=== PATIENT | male | born 1980 | race Two or more races ===

== ENCOUNTER 2017-10-16 10:25 | Inpatient (IN) | payer OTHER ==
[2017-10-12 19:23] VITALS: BMI 20.9
[2017-10-16] MEDS ORDERED: GENTAMICIN SO4 80 MG/2 ML VIAL ONE ×3 (10:44→12:23)
[2017-10-16] MEDS ORDERED: THROMBIN (BOVINE) 5,000 UNIT VIAL TP ONE (10:45)
[2017-10-16] MEDS ORDERED: LIDOCAINE 1%/EPI 1:100000 (20 ML MULTI DOSE VIAL) ONE (10:45)
[2017-10-16 11:02] LABS: URINE APPEARANCE CLEAR; URINE BILIRUBIN NEGATIVE (NEGATIVE); URINE BLOOD NEGATIVE (NEGATIVE); URINE COLOR YELLOW; URINE GLUCOSE (UA) NEGATIVE (NEGATIVE); URINE KETONE NEGATIVE (NEGATIVE); URINE LEUK ESTERASE NEGATIVE (NEGATIVE); URINE NITRITE NEGATIVE (NEGATIVE); URINE PROTEIN NEGATIVE (NEGATIVE); URINE UROBILINOGEN NEGATIVE mg/dL (0.2-1.0)
[2017-10-16 11:11] LABS: INR 1.08 (0.82-1.09); PROTHROMBIN TIME (PATIENT) 12.2 SEC (9.98-11.88)
[2017-10-16 11:13] LABS: ACTIVATED PTT 30.1 SECONDS (26.9-34.4)
[2017-10-16] MEDS ORDERED: fentaNYL CITRATE 250 MCG/5 ML VIAL ONE (11:36)
[2017-10-16] MEDS ORDERED: MIDAZOLAM HCL 2 MG/2 ML SINGLE DOSE VIAL ONE ×3 (11:37)
[2017-10-16] MEDS ORDERED: PROPOFOL 20 ML ONE ×2 (11:37→14:20)
[2017-10-16] MEDS ORDERED: ROCURONIUM BROMIDE 50 MG/5 ML VIAL ONE ×2 (11:37→12:44)
[2017-10-16] MEDS ORDERED: ceFAZolin SODIUM 1 GM VIAL IVPB ONE (12:37)
[2017-10-16] MEDS ORDERED: ONDANSETRON 4 MG/2 ML VIAL ONE ×2 (12:58→14:55)
[2017-10-16] MEDS ORDERED: DEXAMETHASONE SOD PHOSPHATE 4 MG/1 ML VIAL ONE (12:58)
[2017-10-16] MEDS ORDERED: NEOSTIGMINE METHYLSULFATE 0.5 MG/ML - 10 ML MDV ONE (14:53)
[2017-10-16] MEDS ORDERED: GLYCOPYRROLATE 0.2 MG/1 ML VIAL ONE (14:54)
[2017-10-16] MEDS ORDERED: BUPIVACAINE HCL/PF 0.5% (5MG/ML) 10 ML VIAL IJ ONE (15:00)
--- NOTE | 2017-10-16 15:18 | OP ---
Operative Note - Note: Operative Date: 10/16/17 Pre-Operative Diagnosis: Lumbar stenosis, L5/S1 disc herniation, radiculopathy Operation: L5-S1 Laminectomies with interbody cage, arthrodesis, L5-S1 posterior spinal fusion w/ pedicle screws and iliac crest bone graft Post-Operative Diagnosis: Same as Pre-op Surgeon: Mazin Russell [employer] Operator: Nikolay Simmons Anesthesiologist/DAY CARE PROVIDER: So Gallegos Anesthesia: General Estimated Blood Loss (mls): 150 Fluid Volume Replaced (mls): 1,300
[2017-10-16] MEDS ORDERED: PROMETHAZINE HCL 25 MG/1 ML VIAL IVPB PRN (15:20)
[2017-10-16] MEDS ORDERED: ONDANSETRON 4 MG/2 ML VIAL IVPUSH PRN ×2 (15:20→15:23)
[2017-10-16] MEDS ORDERED: HYDROmorphone HCL CARPU-JECT 1 MG/1 ML DISP.SYRIN IVPUSH PRN (15:20)
--- NOTE | 2017-10-16 15:21 | SURG ---
Surgery Call Center Operations Manager Note Call Center Operations Manager: Nikolay Simmons PA-C Date of Service: 10/16/17 Diagnosis: Lumabr stenosis, L5/S1 disc herniation, radiculopathy Procedure: L5-S1 Laminectomies with interbody cage, arthrodesis, L5-S1 posterior spinal fusion w/ pedicle screws and iliac crest bone graft I was present for the entirety of the operative procedure. For further detail, please refer to operative report. Visit type - Case Type Case Type: Scheduled Admission - New patient This patient is new to me today: Yes Date on this admission: 10/16/17
[2017-10-16] MEDS ORDERED: oxyCODONE HCL 5 MG TABLET PO PRN (15:23)
[2017-10-16] MEDS ORDERED: HYDROmorphone *PCA* 6MG/30ML DISP.SYRIN PCA ONE (15:24)
[2017-10-16] MEDS ORDERED: LACTATED RINGERS SOLUTION 1,000 ML IV SCH (15:30)
[2017-10-16] MEDS ORDERED: PROMETHAZINE HCL 25 MG/1 ML VIAL ONE (16:25)
[2017-10-16] MEDS: LACTATED RINGERS SOLUTION 1,000 ML IV SCH (17:12)
[2017-10-16] MEDS: HYDROmorphone *PCA* 6MG/30ML DISP.SYRIN PCA SCH ×3 (17:51→23:52)
[2017-10-16] MEDS: ACETAMINOPHEN 325 MG TABLET (FP) PO SCH ×2 (17:51→22:00)
[2017-10-16] MEDS: CEFAZOLIN 1 GM PUSH 1 GM/10 ML DISP.SYRIN IVPUSH SCH (17:58)
[2017-10-16] MEDS ORDERED: QUEtiapine FUMARATE 25 MG TABLET (FP) ONE (20:59)
[2017-10-16] MEDS ORDERED: PREGABALIN 100 MG CAPSULE PO SCH (22:00)
[2017-10-16] MEDS ORDERED: QUEtiapine FUMARATE 50 MG TABLET PO SCH (22:00)
[2017-10-16] MEDS: PREGABALIN 50 MG CAPSULE PO SCH (22:01)
[2017-10-16] MEDS: diazePAM 2 MG TABLET PO SCH (22:02)
[2017-10-17] MEDS: CEFAZOLIN 1 GM PUSH 1 GM/10 ML DISP.SYRIN IVPUSH SCH ×2 (01:41→09:26)
[2017-10-17] MEDS: ACETAMINOPHEN 325 MG TABLET (FP) PO SCH ×4 (03:50→21:30)
[2017-10-17 07:41] LABS: HEMATOCRIT 36.4 % (35.4-49); HEMOGLOBIN 12.2 GM/dL (11.7-16.9); MCH 31.4 pg (25.7-33.7); MCHC 33.4 g/dl (32.0-35.9); MEAN CELL VOLUME 93.8 fl (80-96); MEAN PLT VOLUME 7.1 fl (7.5-11.1); PLATELET COUNT 197 K/MM3 (134-434); RBC 3.88 M/mm3 (4.00-5.60); WHITE BLOOD COUNT 13.6 K/mm3 (4.0-10.0)
[2017-10-17 08:22] LABS: ANION GAP 9 (8-16); BLOOD UREA NITROGEN 15 mg/dL (7-18); CALCIUM 8.6 mg/dL (8.5-10.1); CHLORIDE 103 mmol/L (98-107); CO2 28 mmol/L (21-32); GLUCOSE,RANDOM 104 mg/dL (74-106); POTASSIUM 4.2 mmol/L (3.5-5.1); SODIUM 140 mmol/L (136-145)
[2017-10-17] MEDS ORDERED: PT OWN MED DRAWER 7, Y5N ONE (08:56)
--- NOTE | 2017-10-17 08:57 | PN ---
Progress Note (short form) - Note Progress Note: Patient doing well after Lumbar fusion. CT shows solid construct with slight medial breach of Right L5 screw. Patient felt very good immediately after surgery and has expected back pain as local anesthetic wears off. PLAN -d/c SINGH -OOB with PT -TLSO brace per protocol -no NSAID -Increase DRY BOSS (patient with long history of conservative management using narcotics)
[2017-10-17] MEDS: EMTRICITAB/RILPIVIRINE/TENOFOV 1 EACH TABLET PO SCH (08:58)
[2017-10-17] MEDS: LACTATED RINGERS SOLUTION 1,000 ML IV SCH ×2 (09:24→16:01)
[2017-10-17] MEDS: diazePAM 2 MG TABLET PO SCH ×2 (09:26→21:32)
[2017-10-17] MEDS: PREGABALIN 50 MG CAPSULE PO SCH ×2 (09:26→21:32)
[2017-10-17] MEDS: SERTRALINE HCL 50 MG TABLET (FP) PO SCH (09:26)
--- NOTE | 2017-10-17 10:00 | PN ---
Progress Note, Physician Chief Complaint: s/p lumbar fusion under general anesthesia post opday one History of Present Illness: on drill sharpener operator for post op pain control - Current Medication List Current Medications: Active Medications Acetaminophen (Tylenol -) 650 mg PO Q6H [facility] Last Admin: 10/17/17 08:58 Dose: 650 mg Diazepam (Valium -) 2 mg PO BID [facility] Last Admin: 10/17/17 09:26 Dose: 2 mg Emtricitabine/Rilpivirine/Tenofovir (Complera -) 1 each PO DAILY@0800 [facility] Last Admin: 10/17/17 08:58 Dose: 1 each Hydromorphone HCl (Dilaudid Formulator Compounder -) 6 mg TELEPHONE TECHNICIAN TELEPHONE TECHNICIAN [facility] PRN Reason: Protocol Stop: 10/19/17 16:30 Lactated Ringer's (Lactated Ringers Solution) 1,000 mls @ 125 mls/hr IV ASDIR [facility] Last Admin: 10/17/17 09:24 Dose: 125 mls/hr Cefazolin Sodium (Ancef -) 1 gm in 10 mls @ 100 mls/hr IVPUSH Q8H-IV [facility] Stop: 10/17/17 17:59 Last Admin: 10/17/17 09:26 Dose: 100 mls/hr Ondansetron HCl (Zofran Injection) 4 mg IVPUSH Q6H PRN PRN Reason: NAUSEA AND/OR VOMITING Oxycodone HCl (Roxicodone -) 5 mg PO Q4H PRN PRN Reason: PAIN LEVEL 1-5 Oxycodone HCl (Roxicodone -) 10 mg PO Q4H PRN PRN Reason: PAIN LEVEL 6-10 Pregabalin (Lyrica -) 100 mg PO BID [facility] Last Admin: 10/17/17 09:26 Dose: 100 mg Promethazine HCl (Phenergan Injection -) 12.5 mg IVPB Q6H PRN PRN Reason: NAUSEA-FOR RESCUE AFTER 15 MIN Quetiapine Fumarate (Seroquel -) 200 mg PO [facility] Sertraline HCl (Zoloft -) 100 mg PO DAILY [facility] Last Admin: 10/17/17 09:26 Dose: 100 mg - Objective Vital Signs: Vital Signs Temperature 98.2 F 10/17/17 09:14 Pulse Rate 82 10/17/17 09:14 Respiratory Rate 20 10/17/17 09:14 Blood Pressure 98/66 10/17/17 09:14 O2 Sat by Pulse Oximetry (%) 100 10/16/17 21:00 Constitutional: Yes: Well Nourished Cardiovascular: Yes: WNL Respiratory: Yes: WNL Gastrointestinal: Yes: WNL Labs: CBC, BMP 10/17/17 06:00 10/17/17 06:00 INR, PTT INR 1.08 (0.82-1.09) 10/16/17 10:45 Assessment/Plan No adverse effect of anesthetic. No nausea or vomiting. Pain inadequately controlled. Suggested switching to oral but patient insisted on remaining on drill sharpener operator for one more day. will increase drill sharpener operator dose. will follow up tomoroow
[2017-10-17] MEDS: HYDROmorphone *PCA* 6MG/30ML DISP.SYRIN PCA SCH ×3 (11:07→18:32)
[2017-10-17] MEDS: HEPARIN NA (PORCINE) 5,000 UNITS/ML 1ML VIAL SQ SCH ×2 (14:22→21:28)
--- NOTE | 2017-10-17 19:17 | PN ---
Progress Note (short form) - Note Progress Note: 37 y/o male with aprox 6 month hx of back pain progressively getting worse. evaluated and underwent surgical intervention 10/16/17 POD#1 L5-S1 Laminectomies with interbody cage, arthrodesis, L5-S1 posterior spinal fusion w/ pedicle screws and iliac crest bone graft patient seen and examined in room c/o pain to lower back and continued paresthesia to both LE Vital Signs Period Temp Pulse Resp BP Sys/Bhatti Pulse Ox Last 24 Hr 98 F-98.8 F 74-88 20-20 90-115/44-66 99-100 neck supple heart S1/S2 reg lung clear bilat abd soft non tender back surgical site with dressing / clean and dry ext no edema / +2 pulses CBC, BMP 10/17/17 06:00 10/17/17 06:00 POD #1 L5-S1 Laminectomies with interbody cage, arthrodesis, L5-S1 posterior spinal fusion w/ pedicle screws and iliac crest bone graft
[2017-10-17] MEDS: QUEtiapine FUMARATE 100 MG TABLET (FP) PO SCH (21:32)
[2017-10-18] MEDS: ACETAMINOPHEN 325 MG TABLET (FP) PO SCH ×6 (03:48→22:02)
[2017-10-18] MEDS: HEPARIN NA (PORCINE) 5,000 UNITS/ML 1ML VIAL SQ SCH ×3 (06:13→21:15)
[2017-10-18] MEDS ORDERED: PT OWN MED DRAWER 7, Y5N ONE (09:12)
[2017-10-18] MEDS ORDERED: HYDROmorphone *PCA* 6MG/30ML DISP.SYRIN PCA SCH (09:45)
[2017-10-18] MEDS: PREGABALIN 50 MG CAPSULE PO SCH ×2 (09:45→21:15)
[2017-10-18] MEDS: diazePAM 2 MG TABLET PO SCH ×2 (09:45→21:15)
[2017-10-18] MEDS: EMTRICITAB/RILPIVIRINE/TENOFOV 1 EACH TABLET PO SCH (09:45)
[2017-10-18] MEDS: SERTRALINE HCL 50 MG TABLET (FP) PO SCH (09:45)
--- NOTE | 2017-10-18 09:53 | PN ---
Progress Note, Physician Chief Complaint: Pt. still having severe pain after ADMINISTRATIVE ASSISTANT FRONT DESK dose increased yesterday. No other complaints. - Current Medication List Current Medications: Active Medications Acetaminophen (Tylenol -) 650 mg PO Q6H [facility] Last Admin: 10/18/17 03:48 Dose: Not Given Diazepam (Valium -) 2 mg PO BID [facility] Last Admin: 10/17/17 21:32 Dose: 2 mg Emtricitabine/Rilpivirine/Tenofovir (Complera -) 1 each PO DAILY@0800 [facility] Last Admin: 10/17/17 08:58 Dose: 1 each Heparin Sodium (Porcine) (Heparin -) 5,000 unit SQ TID [facility] Last Admin: 10/18/17 06:13 Dose: 5,000 unit Hydromorphone HCl (Dilaudid Fruit Dumper -) 6 mg ADMINISTRATIVE ASSISTANT FRONT DESK ADMINISTRATIVE ASSISTANT FRONT DESK [facility] PRN Reason: Protocol Stop: 10/19/17 16:30 Last Admin: 10/17/17 18:32 Dose: 6 mg Lactated Ringer's (Lactated Ringers Solution) 1,000 mls @ 125 mls/hr IV ASDIR [facility] Last Admin: 10/17/17 16:01 Dose: Not Given Ondansetron HCl (Zofran Injection) 4 mg IVPUSH Q6H PRN PRN Reason: NAUSEA AND/OR VOMITING Oxycodone HCl (Roxicodone -) 5 mg PO Q4H PRN PRN Reason: PAIN LEVEL 1-5 Oxycodone HCl (Roxicodone -) 10 mg PO Q4H PRN PRN Reason: PAIN LEVEL 6-10 Pregabalin (Lyrica -) 100 mg PO BID [facility] Last Admin: 10/17/17 21:32 Dose: 100 mg Promethazine HCl (Phenergan Injection -) 12.5 mg IVPB Q6H PRN PRN Reason: NAUSEA-FOR RESCUE AFTER 15 MIN Quetiapine Fumarate (Seroquel -) 200 mg PO HS [facility] Last Admin: 10/17/17 21:32 Dose: 200 mg Sertraline HCl (Zoloft -) 100 mg PO DAILY [facility] Last Admin: 10/17/17 09:26 Dose: 100 mg - Objective Vital Signs: Vital Signs Temperature 98.6 F 10/18/17 06:00 Pulse Rate 86 10/18/17 06:00 Respiratory Rate 18 10/18/17 06:00 Blood Pressure 103/63 10/18/17 06:00 O2 Sat by Pulse Oximetry (%) 99 10/17/17 21:00 Constitutional: Yes: Well Nourished, No Distress, Calm Musculoskeletal: Yes: WNL Neurological: Yes: WNL, Alert, Oriented ...Motor Strength: WNL Labs: CBC, BMP 10/17/17 06:00 10/17/17 06:00 INR, PTT INR 1.08 (0.82-1.09) 10/16/17 10:45 Assessment/Plan POD#2 s/p lumbar fusion under GA with ADMINISTRATIVE ASSISTANT FRONT DESK for pain control. Increased ADMINISTRATIVE ASSISTANT FRONT DESK to 0.6mg q6. Will see tomorrow
--- NOTE | 2017-10-18 13:21 | PN ---
Progress Note (short form) - Note Progress Note: Pt found lying in bed. Rates lower back pain as 9 on pain scale. Vital Signs Period Temp Pulse Resp BP Sys/Bhatti Pulse Ox Last 24 Hr 98.0 F-98.6 F 74-86 18-20 96-115/52-65 99 CBC, BMP 10/17/17 06:00 10/17/17 06:00 HEENT- Normocephalic Neck- supple Lungs- CTAB Heart- S1/S2 Abd- Soft, NT, Pos BS x 4 Skin- Lumbar incision site dsg intact. SINGH drain in place. Ext- Neg LE edema Active Medications Acetaminophen (Tylenol -) 650 mg PO Q6H [facility] Last Admin: 10/18/17 09:48 Dose: Not Given Diazepam (Valium -) 2 mg PO BID [facility] Last Admin: 10/18/17 09:45 Dose: 2 mg Emtricitabine/Rilpivirine/Tenofovir (Complera -) 1 each PO DAILY@0800 [facility] Last Admin: 10/18/17 09:45 Dose: 1 each Heparin Sodium (Porcine) (Heparin -) 5,000 unit SQ TID [facility] Last Admin: 10/18/17 06:13 Dose: 5,000 unit Hydromorphone HCl (Dilaudid Airplane Gas Tank Liner Assembler -) 6 mg CALL CENTER SUPPORT REPRESENTATIVE CALL CENTER SUPPORT REPRESENTATIVE [facility] PRN Reason: Protocol Stop: 10/19/17 16:30 Last Admin: 10/18/17 10:46 Dose: 6 mg Lactated Ringer's (Lactated Ringers Solution) 1,000 mls @ 125 mls/hr IV ASDIR [facility] Last Admin: 10/17/17 16:01 Dose: Not Given Ondansetron HCl (Zofran Injection) 4 mg IVPUSH Q6H PRN PRN Reason: NAUSEA AND/OR VOMITING Oxycodone HCl (Roxicodone -) 5 mg PO Q4H PRN PRN Reason: PAIN LEVEL 1-5 Oxycodone HCl (Roxicodone -) 10 mg PO Q4H PRN PRN Reason: PAIN LEVEL 6-10 Pregabalin (Lyrica -) 100 mg PO BID [facility] Last Admin: 10/18/17 09:45 Dose: 100 mg Promethazine HCl (Phenergan Injection -) 12.5 mg IVPB Q6H PRN PRN Reason: NAUSEA-FOR RESCUE AFTER 15 MIN Quetiapine Fumarate (Seroquel -) 200 mg PO HS [facility] Last Admin: 10/17/17 21:32 Dose: 200 mg Sertraline HCl (Zoloft -) 100 mg PO DAILY [facility] Last Admin: 10/18/17 09:45 Dose: 100 mg POD #1 L5-S1 Laminectomies with interbody cage, arthrodesis, L5-S1 posterior spinal fusion w/ pedicle screws and iliac crest bone graft
[2017-10-18] MEDS: LACTATED RINGERS SOLUTION 1,000 ML IV SCH (16:30)
[2017-10-18] MEDS: oxyCODONE HCL 5 MG TABLET PO PRN ×2 (16:51→21:17)
[2017-10-18] MEDS: QUEtiapine FUMARATE 100 MG TABLET (FP) PO SCH (21:15)
[2017-10-19] MEDS: oxyCODONE HCL 5 MG TABLET PO PRN ×4 (01:42→17:43)
[2017-10-19] MEDS: ACETAMINOPHEN 325 MG TABLET (FP) PO SCH (05:22)
[2017-10-19] MEDS: HEPARIN NA (PORCINE) 5,000 UNITS/ML 1ML VIAL SQ SCH ×3 (05:30→21:55)
[2017-10-19 08:04] LABS: BASO % 0.2 % (0-2.0); EOS % 1.2 % (0-4.5); HEMATOCRIT 35.8 % (35.4-49); HEMOGLOBIN 12.2 GM/dL (11.7-16.9); LYMPH % 29.3 % (8-40); MCH 32.1 pg (25.7-33.7); MEAN CELL VOLUME 94.3 fl (80-96); MEAN PLT VOLUME 7.9 fl (7.5-11.1); MONO % 12.5 % (3.8-10.2); NEUT % 56.8 % (42.8-82.8); PLATELET COUNT 182 K/MM3 (134-434); RDW 13.2 % (11.9-15.9); WHITE BLOOD COUNT 8.8 K/mm3 (4.0-10.0)
[2017-10-19] MEDS ORDERED: oxyCODONE HCL 5 MG TABLET PO PRN ×2 (08:18→08:30)
[2017-10-19] MEDS ORDERED: ACETAMINOPHEN 325 MG TABLET (FP) PO PRN (08:24)
[2017-10-19] MEDS ORDERED: KETOROLAC TROMETHAMINE 30 MG/1 ML VIAL IVPUSH ONE (08:25)
[2017-10-19] MEDS ORDERED: PT OWN MED DRAWER 7, Y5N ONE (08:42)
[2017-10-19] MEDS: EMTRICITAB/RILPIVIRINE/TENOFOV 1 EACH TABLET PO SCH (08:46)
[2017-10-19] MEDS: oxyCODONE HCL 20 MG SUSTAINED ACTING TABLET PO SCH ×3 (08:46→21:56)
--- NOTE | 2017-10-19 08:49 | PN ---
Progress Note (short form) - Note Progress Note: 37 y/o male with aprox 6 month hx of back pain progressively getting worse. evaluated and underwent surgical intervention 10/16/17 POD#3 L5-S1 Laminectomies with interbody cage, arthrodesis, L5-S1 posterior spinal fusion w/ pedicle screws and iliac crest bone graft patient seen and examined in room off ELECTRICAL PROSPECTOR but still with significant pain ( patient has been followed by Dr Velasco as out patient for Pain Management ) pain meds increased and will reassess for possible d/c today Vital Signs Period Temp Pulse Resp BP Sys/Bhatti Pulse Ox Last 24 Hr 98 F-98.8 F 74-88 20-20 90-115/44-66 99-100 neck supple heart S1/S2 reg lung clear bilat abd soft non tender back surgical site clean / drain in place - being removed at time of exam ext no edema / +2 pulses / no calf tenderness CBC, BMP 10/19/17 06:30 POD#3 L5-S1 Laminectomies with interbody cage, arthrodesis, L5-S1 posterior spinal fusion w/ pedicle screws and iliac crest bone graft ---pain management re - assess pain control prior to d/c out patient follow up with Dr Velasco ---Surgical follow up per NS
[2017-10-19 09:04] LABS: ANION GAP 7 (8-16); BLOOD UREA NITROGEN 9 mg/dL (7-18); CALCIUM 8.4 mg/dL (8.5-10.1); CHLORIDE 100 mmol/L (98-107); CO2 32 mmol/L (21-32); CREATININE 0.8 mg/dL (0.7-1.3); GLUCOSE,RANDOM 90 mg/dL (74-106); POTASSIUM 3.8 mmol/L (3.5-5.1); SODIUM 139 mmol/L (136-145)
[2017-10-19] MEDS: SERTRALINE HCL 50 MG TABLET (FP) PO SCH (09:09)
[2017-10-19] MEDS: PREGABALIN 50 MG CAPSULE PO SCH ×2 (09:10→21:55)
--- NOTE | 2017-10-19 10:27 | PN ---
Progress Note (short form) - Note Progress Note: Surgery POD #3 L5-S1 Laminectomies with interbody cage, arthrodesis, L5-S1 posterior spinal fusion Patient seen and examined at bedside c/o significant back and right leg pain. He was being followed by Dr Velasco for pain management preoperatively and has had difficulty with post op pain management since BROADCAST DIRECTOR OPERATIONS was discharged yesterday. He is still having lots of Right LE radiculopathy and intermittent numbness in the foot and toes. He is tolerating a regular diet, voiding and passing gas but has not moved his bowels yet. He denies any CP, SOB, N/V fever or chills. Vital Signs Temp 98.3 F 10/19/17 05:00 Pulse 79 10/19/17 05:00 Resp 18 10/19/17 05:00 BP 104/52 10/19/17 05:00 Pulse Ox 99 10/18/17 21:00 Intake & Output 18 10/18/17 10/19/17 11:59 23:59 11:59 Intake Total 250 1350 1350 Output Total 1260 1430 1820 Balance -1010 -80 -470 Intake: IV 500 1000 Lactated Ringers Solution 500 1000 1,000 ml @ 125 mls/hr IV ASDIR [facility] Rx#: [id number] Oral 250 850 350 Output: Drainage 60 80 20 Back 60 80 20 Urine 1200 1350 1800 Void 1200 1350 1800 Other: Voiding Method Urinal Urinal Urinal Bowel Movement No No CBC, BMP 0318 06:30 10/19/17 06:30 PE: A&Ox3, mild distress 2/2 pain unlabored resp on RA Lumbar spine incision C/D/I with day insitu and dermanbond. surrounding tissue without erythema, edema, or evidence of collection or fluctuance. J/P drain right paraveterbral removed with tip fully intact and @10cc of SS d/c. Steri strips and pressure dressing applied to drain site. B/L LE compartments soft, supple and non-tender. 5/5 strength on dorsi/plantar flexion and +2 pedal pulses. Problem List - Problems (1) Lumbar degenerative disc disease Assessment/Plan: POD# 3 Lumbar lamiectomy and fusion in the setting of chronic pain and previous outpatient pain management with Dr. Velasco Plan: 1) New pain regime as discussed with Dr Russell and Dr Mak implemented. Patient will follow up with Dr Velasco immediately upon d/c. 2) OOB with PT and TLSO brace, WBAT 3) Continue DVT prophylaxis 4) d/c planning for home today vs tomorrow. Evaluation and plan discussed with Dr Russell Code(s): M51.36 - OTHER INTERVERTEBRAL DISC DEGENERATION, LUMBAR REGION
[2017-10-19] MEDS: ACETAMINOPHEN 325 MG TABLET (FP) PO PRN ×2 (10:40→17:43)
[2017-10-19] MEDS: POLYETHYLENE GLYCOL 3350 119 GM BTL PO SCH ×2 (10:56→21:56)
[2017-10-19] MEDS: QUEtiapine FUMARATE 100 MG TABLET (FP) PO SCH (21:55)
[2017-10-20] MEDS: HEPARIN NA (PORCINE) 5,000 UNITS/ML 1ML VIAL SQ SCH ×3 (05:31→21:25)
[2017-10-20] MEDS ORDERED: PT OWN MED DRAWER 7, Y5N ONE ×3 (08:24→14:49)
[2017-10-20] MEDS: EMTRICITAB/RILPIVIRINE/TENOFOV 1 EACH TABLET PO SCH (08:48)
[2017-10-20] MEDS: ACETAMINOPHEN 325 MG TABLET (FP) PO PRN ×3 (08:48→19:38)
[2017-10-20] MEDS: oxyCODONE HCL 5 MG TABLET PO PRN ×2 (08:48→14:54)
[2017-10-20] MEDS: oxyCODONE HCL 20 MG SUSTAINED ACTING TABLET PO SCH ×2 (10:48→21:21)
[2017-10-20] MEDS: SERTRALINE HCL 50 MG TABLET (FP) PO SCH (10:48)
[2017-10-20] MEDS: PREGABALIN 50 MG CAPSULE PO SCH ×2 (10:48→21:21)
[2017-10-20] MEDS: POLYETHYLENE GLYCOL 3350 119 GM BTL PO SCH ×2 (10:48→21:25)
--- NOTE | 2017-10-20 12:23 | PN ---
Progress Note (short form) - Note Progress Note: 37 y/o male with aprox 6 month hx of back pain progressively getting worse. evaluated and underwent surgical intervention 10/16/17 POD#4 L5-S1 Laminectomies with interbody cage, arthrodesis, L5-S1 posterior spinal fusion w/ pedicle screws and iliac crest bone graft patient seen and examined in room pain meds have been adjusted --yet remains "in pain" and no BM since surgery per nursing staff has been ambulating the hallways wearing his brace he is reluctant to go home - due to poor pain management and "safety " ( has stairs and lives alone ) doubtful he would qualify for STR reviewed meds with patient Vital Signs Period Temp Pulse Resp BP Sys/Bhatti Pulse Ox Last 24 Hr 98 F-98.8 F 74-88 20-20 90-115/44-66 99-100 neck supple heart S1/S2 reg lung clear bilat abd soft non tender back surgical site clean / drain in place - being removed at time of exam ext no edema / +2 pulses / no calf tenderness CBC, BMP 10/19/17 06:30 POD#4 L5-S1 Laminectomies with interbody cage, arthrodesis, L5-S1 posterior spinal fusion w/ pedicle screws and iliac crest bone graft ---pain management re - assess pain control prior to d/c pain meds reviewed with patient encourage d/c home out patient follow up with Dr Velasco ---Surgical follow up per NS for d/c home in am
[2017-10-20] MEDS: DOCUSATE SODIUM 100 MG CAPSULE (FP) PO SCH ×2 (13:13→21:21)
--- NOTE | 2017-10-20 16:20 | PN ---
Progress Note (short form) - Note Progress Note: Patient is stable after Lumbar fusion. Pain controlled with oral medications although he feels that his pain is not eliminated. Dressing is clean, dry and intact. Patient ambulating with brace. Patient should be ready for discharge home in AM
[2017-10-20] MEDS: QUEtiapine FUMARATE 100 MG TABLET (FP) PO SCH (21:21)
[2017-10-21] MEDS: ACETAMINOPHEN 325 MG TABLET (FP) PO PRN ×2 (04:35→12:46)
[2017-10-21] MEDS: HEPARIN NA (PORCINE) 5,000 UNITS/ML 1ML VIAL SQ SCH ×3 (06:21→21:29)
[2017-10-21] MEDS ORDERED: PT OWN MED DRAWER 7, Y5N ONE ×3 (08:05→13:55)
[2017-10-21] MEDS: EMTRICITAB/RILPIVIRINE/TENOFOV 1 EACH TABLET PO SCH (08:49)
[2017-10-21] MEDS: oxyCODONE HCL 5 MG TABLET PO PRN (08:49)
[2017-10-21] MEDS: POLYETHYLENE GLYCOL 3350 119 GM BTL PO SCH ×2 (09:23→21:30)
[2017-10-21] MEDS: DOCUSATE SODIUM 100 MG CAPSULE (FP) PO SCH ×2 (09:23→21:42)
[2017-10-21] MEDS: SERTRALINE HCL 50 MG TABLET (FP) PO SCH (09:23)
[2017-10-21] MEDS: PREGABALIN 50 MG CAPSULE PO SCH ×2 (09:24→21:38)
[2017-10-21] MEDS: oxyCODONE HCL 20 MG SUSTAINED ACTING TABLET PO SCH ×2 (10:48→21:39)
--- NOTE | 2017-10-21 10:56 | PN ---
Progress Note (short form) - Note Progress Note: Patient doing well. We discussed discharge instructions and use of incentive spirometer. Patient should contact my office after discharge to schedule skin clip removal (likely on November 14). All questions answered.
[2017-10-21] MEDS ORDERED: MAGNESIUM CITRATE 300 ML BOTTLE PO ONE (14:30)
[2017-10-21] MEDS ORDERED: Methylnaltrexone Bromide 12 MG/0.6 ML KIT SQ ONE (15:00)
[2017-10-21] MEDS: QUEtiapine FUMARATE 100 MG TABLET (FP) PO SCH (21:37)
[2017-10-22] MEDS: HEPARIN NA (PORCINE) 5,000 UNITS/ML 1ML VIAL SQ SCH (05:47)
[2017-10-22 06:11] VITALS: TEMP 99
--- NOTE | 2017-10-22 06:21 | DS ---
Physical Examination Vital Signs: Vital Signs Temperature 99.0 F 10/22/17 06:11 Pulse Rate 80 10/22/17 06:11 Respiratory Rate 18 10/22/17 06:11 Blood Pressure 99/54 10/22/17 06:11 O2 Sat by Pulse Oximetry (%) 97 10/21/17 21:00 Findings/Remarks: 37 y/o male with aprox 6 month hx of back pain progressively getting worse. evaluated and underwent surgical intervention 10/16/17 s/p L5-S1 Laminectomies with interbody cage, arthrodesis, L5-S1 posterior spinal fusion w/ pedicle screws and iliac crest bone graft Patients stay complicated by fever POD #4 which is now resolved await CXR / cbc/ bmp this am for d/c home Constitutional: Yes: Well Nourished, No Distress, Calm Eyes: Yes: WNL, Conjunctiva Clear HENT: Yes: WNL, Atraumatic, Normocephalic Neck: Yes: WNL, Supple, Trachea Midline Cardiovascular: Yes: Regular Rate and Rhythm Respiratory: Yes: CTA Bilaterally Gastrointestinal: Yes: Normal Bowel Sounds, Soft Renal/: Yes: WNL Breast(s): Yes: WNL Musculoskeletal: Yes: WNL Extremities: No: Deformity, Delayed Capillary Refill Edema: No Peripheral Pulses WNL: Yes Integumentary: Yes: WNL Wound/Incision: Yes: Clean/Dry Neurological: Yes: Alert, Oriented Psychiatric: Yes: Alert, Oriented Labs: CBC, BMP 10/19/17 06:30 10/19/17 06:30 Discharge Summary Reason For Visit: DEGENERATIVE DISC DISEASE AND SPONDYLOLISTHESIS Current Active Problems Lumbar degenerative disc disease (Acute) HIV - stable - outpte management Chronic pain syndrome will follow up with Dr Velasco ( pain Med) Condition: Good - Instructions Diet, Activity, Other Instructions: Dr. Russell's Discharge Instructions Post Operative Instructions Physical activity Resume your normal everyday activity as tolerated no heavy lifting or exercise until seen by your surgeon. You may walk unlimited amounts of and climb stairs. You may resume driving the car when you feel safe and comfortable behind the wheel and you are no longer wearing your brace. Do not operate a vehicle while taking narcotic medication. Wound care If you have a bandage, leave it on, and keep dry for 48 - 72 hours. After that time discard the outer bandage. If there are tapes on the skin under the outer bandage, leave them in place. They will peel off in the next 7 to 10 days. Do Not peel them off. You may shower 2 days after surgery however, do not submerge the incision.The day will be removed in the office in 10-14 days. Diet There are no dietary restrictions. Eat healthy, high-fiber foods. Drink 6 to 8 glasses of liquid each day. This will assist in keeping your bowels are regular. Pain management You may take Tylenol or acetaminophen. Any pain prescription medication ordered should be taken as prescribed for moderate to severe pain. Call Dr. Russell for any of the following: Severe pain not relieved by medication Fever of 101 or higher Excessive bleeding or drainage on dressing Inability to urinate Any chest pain or shortness of breath seek emergency care. Call the office to confirm a post operative appointment 7-10 days post op. Referrals: Zay Velasco MD [Staff Physician] - Disposition: HOME - Home Medications Comprehensive Discharge Medication List: Ambulatory Orders Quetiapine Fumarate [Seroquel -] 200 mg PO HS 09/03/15 Sertraline HCl [Zoloft -] 100 mg PO DAILY 09/03/15 Emtricita/Rilpivirine/Tenof Df [Complera Tablet] 1 each PO DAILY 10/12/17 Multivitamin/Iron/Folic Acid [Centrum Adults Tablet] 1 each PO DAILY 10/12/17 Pregabalin [Lyrica] 100 mg PO BID 10/12/17 oxycontin 20 mr bid -7 day supply # 14 oxycodone 10 mg QID PRN for break through pain # 14 Colace 100mg BID Miralax qDay
[2017-10-22 07:34] LABS: BASO % 0.3 % (0-2.0); HEMATOCRIT 34.5 % (35.4-49); HEMOGLOBIN 11.9 GM/dL (11.7-16.9); LYMPH % 30.9 % (8-40); MCH 32.2 pg (25.7-33.7); MCHC 34.5 g/dl (32.0-35.9); MEAN CELL VOLUME 93.3 fl (80-96); MEAN PLT VOLUME 7.4 fl (7.5-11.1); MONO % 15.3 % (3.8-10.2); NEUT % 51.5 % (42.8-82.8); PLATELET COUNT 267 K/MM3 (134-434); RDW 12.8 % (11.9-15.9); WHITE BLOOD COUNT 7.7 K/mm3 (4.0-10.0)
[2017-10-22 08:32] LABS: ANION GAP 9 (8-16); BLOOD UREA NITROGEN 15 mg/dL (7-18); CALCIUM 8.9 mg/dL (8.5-10.1); CHLORIDE 97 mmol/L (98-107); CO2 30 mmol/L (21-32); GLUCOSE,RANDOM 95 mg/dL (74-106); POTASSIUM 4.9 mmol/L (3.5-5.1); SODIUM 136 mmol/L (136-145)
[2017-10-22] MEDS ORDERED: PT OWN MED DRAWER 7, Y5N ONE (09:24)
[2017-10-22] MEDS: SERTRALINE HCL 50 MG TABLET (FP) PO SCH (09:25)
[2017-10-22] MEDS: oxyCODONE HCL 20 MG SUSTAINED ACTING TABLET PO SCH (09:25)
[2017-10-22] MEDS: PREGABALIN 50 MG CAPSULE PO SCH (09:27)
[2017-10-22] MEDS: EMTRICITAB/RILPIVIRINE/TENOFOV 1 EACH TABLET PO SCH (09:27)
[2017-10-22] MEDS: DOCUSATE SODIUM 100 MG CAPSULE (FP) PO SCH (09:27)
[2017-10-22 11:06] VITALS: BP 110/56; PULSE 76
[2017-10-22] MEDS: POLYETHYLENE GLYCOL 3350 119 GM BTL PO SCH (11:36)
== END 2017-10-22 11:08 | disposition home or self-care (01) | DRG 460 ==
LOC: JSAMEDAYSX 10:25 → EDSTATUS 12:30 → J8W 17:52
PROVIDERS: ADMIT Family Medicine; ATTEND Family Medicine
PROC: 0HR6X73 Replacement of Back Skin with Autologous Tissue Substitute, Full Thickness, External Approach (ICD-10-PCS; 2017-10-16)
PROC: 0SG30AJ Fusion of Lumbosacral Joint with Interbody Fusion Device, Posterior Approach, Anterior Column, Open Approach (ICD-10-PCS; principal; 2017-10-16 12:30)
DX: M51.17 Intervertebral disc disorders with radiculopathy, lumbosacral region (principal); M51.27 Other intervertebral disc displacement, lumbosacral region; R20.2 Paresthesia of skin; G89.29 Other chronic pain
CPT/HCPCS: 36415; 71045-TC-FY; 71046-TC-FY; 72131-TC; 76000-TC-FY; 80048; 81003; 85025; 85027; 85610; 85730; 86850; 86900; 86901; 94010; 94760; 97116-GP; 97161-GP; J1170; J1644

== ENCOUNTER 2022-09-19 04:04 | Inpatient (IN) | payer OTHER ==
[2022-09-15 10:01] VITALS: BMI 20.5
[~2022-09-19 04:04] MED LIST: GENTAMICIN SO4 80 MG/2 ML VIAL IVPB ONE; HYDROGEN PEROXIDE 473 ML PO ONE; LIDOCAINE 1%/EPI 1:100000 (20 ML MULTI DOSE VIAL) IJ ONE; THROMBIN (BOVINE) 20,000 UNIT VIAL TP ONE; VANCOMYCIN 1 GM in NS (PRE-DOCKED) 1,000 MG/250 ML IVPB ONE
[2022-09-19] MEDS ORDERED: ACETAMINOPHEN INJECTION 100 ML IVPB ONE (07:10)
[2022-09-19] MEDS ORDERED: DEXMEDETOMIDINE HCL 200 MCG/2 ML IVPB ONE (07:10)
[2022-09-19] MEDS ORDERED: VANCOMYCIN 1,000 MG VIAL (RESTRICTED TO ID ONLY) ONE ×2 (07:13→08:42)
[2022-09-19] MEDS ORDERED: THROMBIN (BOVINE) 5,000 UNIT VIAL TP ONE ×2 (07:14→09:45)
[2022-09-19] MEDS ORDERED: BACITRACIN ZINC 15 GM TUBE TOPICAL OINTMENT ONE (07:14)
[2022-09-19] MEDS ORDERED: MIDAZOLAM HCL 2 MG/2 ML SINGLE DOSE VIAL ONE (07:15)
[2022-09-19] MEDS ORDERED: PROPOFOL 20 ML ONE (07:15)
[2022-09-19] MEDS ORDERED: BUPIVACAINE HCL/PF 0.5% (5MG/ML) 10 ML VIAL ONE (07:15)
[2022-09-19] MEDS ORDERED: ROCURONIUM BROMIDE 50 MG/5 ML SYRINGE ONE ×2 (07:18→09:16)
[2022-09-19] MEDS ORDERED: GENTAMICIN SO4 80 MG/2 ML VIAL ONE (07:31)
[2022-09-19] MEDS ORDERED: BUPIVACAINE LIPOSOME/PF (EXPAREL) 266 MG/20 ML VIAL ONE (07:32)
[2022-09-19] MEDS ORDERED: ONDANSETRON 4 MG/2 ML VIAL IVPUSH PRN (07:49)
[2022-09-19] MEDS ORDERED: ACETAMINOPHEN 325 MG TABLET (FP) PO PRN (07:49)
[2022-09-19] MEDS ORDERED: VANCOMYCIN 1 GM in D5W (PRE-DOCKED) 1,000 MG/250 ML IVPB ONE ×2 (08:45→10:25)
[2022-09-19] MEDS ORDERED: ceFAZolin SODIUM 1 GM VIAL IVPB ONE ×2 (08:45)
[2022-09-19] MEDS ORDERED: VANCOMYCIN 1,000 MG VIAL (RESTRICTED TO ID ONLY) IVPB ONE (08:45)
[2022-09-19] MEDS ORDERED: VANCOMYCIN 1 GM in NS (PRE-DOCKED) 1,000 MG/250 ML IVPB ONE (09:05)
[2022-09-19] MEDS ORDERED: TRANEXAMIC ACID 1000 MG/10 ML VIAL ONE ×2 (09:05→10:36)
[2022-09-19] MEDS ORDERED: HYDROGEN PEROXIDE 473 ML PO ONE ×2 (09:14→09:48)
[2022-09-19] MEDS ORDERED: THROMBIN (BOVINE) 20,000 UNIT VIAL TP ONE (09:14)
[2022-09-19] MEDS ORDERED: GENTAMICIN SO4 80 MG/2 ML VIAL IVPB ONE ×2 (09:14→09:48)
[2022-09-19] MEDS ORDERED: ePHEDrine SULFATE 50 MG/1 ML AMPULE ONE (09:15)
[2022-09-19] MEDS ORDERED: VASOPRESSIN 20 UNITS/ML VIAL IV ONE (09:17)
[2022-09-19] MEDS ORDERED: GLYCOPYRROLATE 0.2 MG/1 ML VIAL ONE ×2 (09:21)
[2022-09-19] MEDS ORDERED: NEOSTIGMINE METHYLSULFATE 0.5 MG/1 ML - 10 ML MDV ONE (09:21)
[2022-09-19] MEDS ORDERED: BUPIVACAINE LIPOSOME/PF (EXPAREL) 266 MG/20 ML VIAL NR ONE ×2 (09:49→10:29)
[2022-09-19] MEDS ORDERED: BUPIVACAINE HCL/PF 0.5% (5MG/ML) 10 ML VIAL IJ ONE ×2 (09:49→10:29)
[2022-09-19] MEDS ORDERED: diphenhydrAMINE HCL 25 MG CAPSULE (FP) PO PRN (11:21)
[2022-09-19] MEDS ORDERED: LACTATED RINGERS SOLUTION 1,000 ML/1,000 ML INFUS.BAG IV SCH (11:30)
[2022-09-19] MEDS ORDERED: HEPARIN NA (PORCINE) 5,000 UNITS/ML 1ML VIAL SQ SCH (11:30)
[2022-09-19] MEDS ORDERED: MEPERIDINE HCL 25 MG/ML VIAL ONE (11:31)
[2022-09-19] MEDS ORDERED: CEFAZOLIN 1 GM in DEXTROSE 5%-WATER - 50 ML IVPB SCH (18:00)
[2022-09-19] MEDS: LACTATED RINGERS SOLUTION 1,000 ML IV SCH (18:44)
[2022-09-19] MEDS ORDERED: VANCOMYCIN 1,000 MG in DEXTROSE 5%-WATER - 250 ML IVPB SCH (20:00)
[2022-09-19] MEDS: VANCOMYCIN/WATER FOR INJ (PEG) 1,000 MG/200 ML BAG IVPB SCH (20:16)
[2022-09-19] MEDS: DOCUSATE SODIUM 100 MG CAPSULE (FP) PO SCH (22:01)
[2022-09-19] MEDS: oxyCODONE HCL 5 MG TABLET PO PRN (22:02)
[2022-09-20] MEDS: oxyCODONE HCL 5 MG TABLET PO PRN ×5 (02:57→20:22)
[2022-09-20] MEDS: LACTATED RINGERS SOLUTION 1,000 ML IV SCH ×2 (03:58→08:54)
[2022-09-20] MEDS: HEPARIN NA (PORCINE) 5,000 UNITS/ML 1ML VIAL SQ SCH ×3 (06:36→22:50)
[2022-09-20] MEDS: DOCUSATE SODIUM 100 MG CAPSULE (FP) PO SCH ×3 (06:38→22:49)
[2022-09-20 08:40] LABS: HEMATOCRIT 39.5 % (35.4-49); MCH 31.2 pg (25.7-33.7); MEAN CELL VOLUME 94.5 fl (80-96); MEAN PLT VOLUME 7.8 fl (7.5-11.1); PLATELET COUNT 224 10^3/uL (134-434); RBC 4.18 M/mm3 (4.00-5.60); RDW 12.6 % (11.9-15.9); WHITE BLOOD COUNT 11.8 K/mm3 (4.0-10.0)
[2022-09-20] MEDS: VANCOMYCIN/WATER FOR INJ (PEG) 1,000 MG/200 ML BAG IVPB SCH (08:54)
[2022-09-20 09:19] LABS: BLOOD UREA NITROGEN 11.9 mg/dL (7-18); CALCIUM 8.4 mg/dL (8.5-10.1)
[2022-09-20 09:20] LABS: CREATININE 0.8 mg/dL (0.55-1.3)
[2022-09-20] MEDS ORDERED: FOLIC ACID 1 MG TABLET (FP) PO SCH (10:00)
[2022-09-20] MEDS ORDERED: POTASSIUM CHLORIDE TABS 20 MEQ TABLET.ER (FP) PO ONE (11:09)
[2022-09-20 11:39] VITALS: RESP 18
[2022-09-20] MEDS: ACETAMINOPHEN 500 MG TABLET (FP) PO SCH ×3 (13:02→22:53)
[2022-09-20] MEDS: MEROPENEM 1 GM in DEXTROSE 5%-WATER 100 ML IVPB SCH (17:22)
[2022-09-20] MEDS: QUEtiapine FUMARATE 200 MG TABLET PO SCH (22:56)
[2022-09-21] MEDS: MEROPENEM 1 GM in DEXTROSE 5%-WATER 100 ML IVPB SCH ×3 (02:27→17:15)
[2022-09-21] MEDS: oxyCODONE HCL 5 MG TABLET PO PRN ×4 (02:47→21:15)
[2022-09-21] MEDS: ACETAMINOPHEN 500 MG TABLET (FP) PO SCH ×3 (05:43→22:21)
[2022-09-21] MEDS: DOCUSATE SODIUM 100 MG CAPSULE (FP) PO SCH ×4 (05:44→22:22)
[2022-09-21] MEDS: HEPARIN NA (PORCINE) 5,000 UNITS/ML 1ML VIAL SQ SCH ×3 (05:44→22:25)
[2022-09-21] MEDS ORDERED: POTASSIUM CHLORIDE TABS 20 MEQ TABLET.ER (FP) PO ONE (08:07)
[2022-09-21] MEDS: POLYETHYLENE GLYCOL (HEALTHYLAX) 3350 17 GM PACKET PO SCH (11:05)
[2022-09-21] MEDS: BACLOFEN 10 MG TABLET (FP) PO SCH ×2 (11:06→22:22)
[2022-09-21 12:29] LABS: BASO % 0.2 % (0-2.0); EOS % 0.2 % (0-4.5); HEMATOCRIT 42.8 % (35.4-49); HEMOGLOBIN 14.1 GM/dL (11.7-16.9); LYMPH % 18.4 % (8-40); MCH 31.3 pg (25.7-33.7); MCHC 32.8 g/dl (32.0-35.9); MEAN CELL VOLUME 95.3 fl (80-96); MEAN PLT VOLUME 8.5 fl (7.5-11.1); MONO % 14.9 % (3.8-10.2); NEUT % 66.3 % (42.8-82.8); PLATELET COUNT 230 10^3/uL (134-434); RBC 4.49 M/mm3 (4.00-5.60); RDW 12.6 % (11.9-15.9); WHITE BLOOD COUNT 13.3 K/mm3 (4.0-10.0)
[2022-09-21 12:57] LABS: BLOOD UREA NITROGEN 11.5 mg/dL (7-18)
[2022-09-21] MEDS: EMTRICITAB/RILPIVIRI/TENOF ALA (ODEFSEY) TABLET PO SCH (15:26)
[2022-09-21] MEDS ORDERED: oxyCODONE HCL 5 MG TABLET PO PRN (16:27)
[2022-09-21] MEDS: QUEtiapine FUMARATE 200 MG TABLET PO SCH (22:22)
[2022-09-22] MEDS: oxyCODONE HCL 5 MG TABLET PO PRN ×2 (00:52→10:19)
[2022-09-22] MEDS: MEROPENEM 1 GM in DEXTROSE 5%-WATER 100 ML IVPB SCH ×3 (01:54→18:21)
[2022-09-22] MEDS: DOCUSATE SODIUM 100 MG CAPSULE (FP) PO SCH ×2 (06:05→15:33)
[2022-09-22] MEDS: HEPARIN NA (PORCINE) 5,000 UNITS/ML 1ML VIAL SQ SCH ×2 (06:05→15:33)
[2022-09-22] MEDS: ACETAMINOPHEN 500 MG TABLET (FP) PO SCH (06:09)
[2022-09-22 08:15] LABS: BASO % 0.2 % (0-2.0); EOS % 0.1 % (0-4.5); HEMATOCRIT 41.4 % (35.4-49); HEMOGLOBIN 13.9 GM/dL (11.7-16.9); LYMPH % 12.6 % (8-40); MCH 31.7 pg (25.7-33.7); MCHC 33.6 g/dl (32.0-35.9); MEAN CELL VOLUME 94.5 fl (80-96); MEAN PLT VOLUME 8.3 fl (7.5-11.1); MONO % 10.8 % (3.8-10.2); NEUT % 76.3 % (42.8-82.8); PLATELET COUNT 203 10^3/uL (134-434); RBC 4.38 M/mm3 (4.00-5.60); RDW 12.7 % (11.9-15.9); WHITE BLOOD COUNT 12.9 K/mm3 (4.0-10.0)
[2022-09-22 08:46] LABS: ALBUMIN 3.3 g/dl (3.4-5.0); CALCIUM 9.1 mg/dL (8.5-10.1)
[2022-09-22 08:47] LABS: BLOOD UREA NITROGEN 12.4 mg/dL (7-18)
[2022-09-22 08:48] LABS: PHOSPHOROUS 2.7 mg/dL (2.5-4.9)
[2022-09-22 08:49] LABS: TOT PROT 6.9 g/dl (6.4-8.2)
[2022-09-22] MEDS: BACLOFEN 10 MG TABLET (FP) PO SCH (10:21)
[2022-09-22] MEDS: POLYETHYLENE GLYCOL (HEALTHYLAX) 3350 17 GM PACKET PO SCH (10:22)
[2022-09-22] MEDS: EMTRICITAB/RILPIVIRI/TENOF ALA (ODEFSEY) TABLET PO SCH (10:25)
[2022-09-22 10:33] VITALS: PULSE 88
[2022-09-22 14:10] VITALS: BP 111/71; TEMP 99.6
== END 2022-09-22 19:56 | disposition home or self-care (01) | DRG 460 ==
LOC: J2C 04:04 → J4W 18:47
PROVIDERS: ADMIT Internal Medicine; ATTEND Internal Medicine
PROC: 00QT0ZZ Repair Spinal Meninges, Open Approach (ICD-10-PCS; 2022-09-19)
PROC: 0SP304Z Removal of Internal Fixation Device from Lumbosacral Joint, Open Approach (ICD-10-PCS; 2022-09-19)
PROC: 0SB40ZZ Excision of Lumbosacral Disc, Open Approach (ICD-10-PCS; 2022-09-19)
PROC: 4A10X4G Monitoring of Central Nervous Electrical Activity, Intraoperative, External Approach (ICD-10-PCS; 2022-09-19)
PROC: 0SG3071 Fusion of Lumbosacral Joint with Autologous Tissue Substitute, Posterior Approach, Posterior Column, Open Approach (ICD-10-PCS; principal; 2022-09-19 08:00)
DX: M96.0 Pseudarthrosis after fusion or arthrodesis (principal); B20 Human immunodeficiency virus [HIV] disease; G97.41 Accidental puncture or laceration of dura during a procedure; M47.817 Spondylosis without myelopathy or radiculopathy, lumbosacral region; M47.816 Spondylosis without myelopathy or radiculopathy, lumbar region; M53.2X7 Spinal instabilities, lumbosacral region; Y83.8 Other surgical procedures as the cause of abnormal reaction of the patient, or of later complication, without mention of misadventure at the time of the procedure; F41.8 Other specified anxiety disorders
CPT/HCPCS: 36415; 72131-TC; 76000-TC-FY; 80048; 80053; 83735; 84100; 85025; 85027; 86850; 86900; 86901; 94010; 94760; 97116-GP; 97162-GP; C1713; C1889; J0475; J1644

== ENCOUNTER 2022-09-30 20:43 | Inpatient (IN) | payer OTHER ==
[2022-09-30 20:54] VITALS: BMI 20.2
[2022-09-30] MEDS ORDERED: ACETAMINOPHEN 1000 MG/100 ML BAG IVPB ONE (21:38)
[2022-09-30] MEDS ORDERED: ACETAMINOPHEN INJECTION 100 ML IVPB ONE (21:45)
[2022-09-30] MEDS ORDERED: ACETAMINOPHEN 325 MG TABLET (FP) PO PRN (23:14)
[2022-09-30] MEDS ORDERED: oxyCODONE HCL 5 MG TABLET PO PRN (23:14)
[2022-09-30] MEDS ORDERED: HYDROmorphone HCl 2 MG/ML VIAL ONE (23:15)
[2022-09-30] MEDS: HYDROmorphone HCL CARPU-JECT 2 MG/1 ML DISP.SYRIN IVPUSH ONE (23:22)
[2022-09-30] MEDS ORDERED: VANCOMYCIN 1 GM in D5W (PRE-DOCKED) 1,000 MG/250 ML IVPB ONE (23:55)
[2022-09-30] MEDS ORDERED: AZTREONAM 1 GM in DEXTROSE 5%-WATER - 50 ML IVPB SCH (23:58)
[2022-09-30] MEDS ORDERED: CLINDAMYCIN 600MG PREMIX IVPB 600 MG/50 ML BAG IVPB SCH (23:58)
[2022-10-01] MEDS ORDERED: AZTREONAM 1 GM VIAL (RESTRICTED TO ID) ONE (00:02)
[2022-10-01] MEDS ORDERED: VANCOMYCIN/WATER FOR INJ (PEG) 1,000 MG/200 ML BAG IVPB ONE ×2 (00:02→00:30)
[2022-10-01] MEDS: AZTREONAM 1 GM in DEXTROSE 5%-WATER - 50 ML IVPB SCH ×2 (01:39→09:55)
[2022-10-01] MEDS: CLINDAMYCIN 600MG PREMIX IVPB 600 MG/50 ML BAG IVPB SCH ×4 (01:45→21:35)
[2022-10-01] MEDS ORDERED: POLYETHYLENE GLYCOL (HEALTHYLAX) 3350 17 GM PACKET PO SCH (10:00)
[2022-10-01] MEDS ORDERED: EMTRICITAB/RILPIVIRI/TENOF ALA (ODEFSEY) TABLET PO SCH (10:00)
[2022-10-01] MEDS ORDERED: SERTRALINE HCL 50 MG TABLET (FP) PO SCH (10:00)
[2022-10-01 10:38] LABS: BASO % 0.4 % (0-2.0); EOS % 0.6 % (0-4.5); HEMATOCRIT 36.9 % (35.4-49); HEMOGLOBIN 12.8 GM/dL (11.7-16.9); LYMPH % 19.9 % (8-40); MCH 32.3 pg (25.7-33.7); MCHC 34.7 g/dl (32.0-35.9); MEAN CELL VOLUME 93.2 fl (80-96); MEAN PLT VOLUME 6.4 fl (7.5-11.1); MONO % 10.8 % (3.8-10.2); NEUT % 68.3 % (42.8-82.8); PLATELET COUNT 620 10^3/uL (134-434); RBC 3.96 M/mm3 (4.00-5.60); RDW 12.5 % (11.9-15.9); WHITE BLOOD COUNT 9.4 K/mm3 (4.0-10.0)
[2022-10-01 10:47] LABS: ACTIVATED PTT 35.5 SECONDS (25.2-36.5); INR 1.41 (0.83-1.09); PROTHROMBIN TIME (PATIENT) 16.3 SEC (9.7-13.0)
[2022-10-01 11:00] LABS: CALCIUM 9.1 mg/dL (8.5-10.1)
[2022-10-01 11:01] LABS: ALBUMIN 3.2 g/dl (3.4-5.0); MAGNESIUM 2.1 mg/dL (1.8-2.4)
[2022-10-01 11:03] LABS: BLOOD UREA NITROGEN 18.7 mg/dL (7-18); PHOSPHOROUS 4.4 mg/dL (2.5-4.9)
[2022-10-01 11:04] LABS: CREATININE 0.8 mg/dL (0.55-1.3)
[2022-10-01 11:05] LABS: BILIRUBIN,TOTAL 0.5 mg/dL (0.2-1); TOT PROT 7.4 g/dl (6.4-8.2)
[2022-10-01] MEDS ORDERED: PROMETHAZINE HCL 25 MG/1 ML VIAL IVPB PRN ×2 (13:44→17:25)
[2022-10-01] MEDS ORDERED: ONDANSETRON 4 MG/2 ML VIAL IVPUSH PRN ×2 (13:44→17:25)
[2022-10-01] MEDS ORDERED: LACTATED RINGERS SOLUTION 1,000 ML IV SCH (13:45)
[2022-10-01] MEDS ORDERED: MIDAZOLAM HCL 2 MG/2 ML SINGLE DOSE VIAL ONE (14:16)
[2022-10-01] MEDS ORDERED: PROPOFOL 20 ML ONE ×2 (14:16→16:45)
[2022-10-01] MEDS ORDERED: ROCURONIUM BROMIDE 50 MG/5 ML SYRINGE ONE (14:16)
[2022-10-01] MEDS ORDERED: GLYCOPYRROLATE 0.2 MG/1 ML VIAL ONE (14:17)
[2022-10-01] MEDS ORDERED: GENTAMICIN SO4 80 MG/2 ML VIAL ONE (14:34)
[2022-10-01] MEDS ORDERED: THROMBIN (BOVINE) 5,000 UNIT VIAL TP ONE (14:44)
[2022-10-01] MEDS ORDERED: VANCOMYCIN/WATER FOR INJ (PEG) 1,000 MG/200 ML BAG IVPB SCH (15:30)
[2022-10-01] MEDS ORDERED: DEXAMETHASONE SOD PHOSPHATE 4 MG/1 ML VIAL ONE (15:50)
[2022-10-01] MEDS ORDERED: ONDANSETRON 4 MG/2 ML VIAL ONE (15:50)
[2022-10-01] MEDS ORDERED: CLINDAMYCIN 600MG PREMIX IVPB 600 MG/50 ML BAG IVPB ONE (15:51)
[2022-10-01] MEDS ORDERED: VANCOMYCIN 1,000 MG VIAL (RESTRICTED TO ID ONLY) ONE ×2 (15:55→16:21)
[2022-10-01] MEDS ORDERED: SODIUM CHLORIDE 0.9% P/F 10 ML VIAL IJ ONE ×2 (15:55→16:19)
[2022-10-01] MEDS ORDERED: KETOROLAC TROMETHAMINE 30 MG/1 ML VIAL ONE (16:05)
[2022-10-01] MEDS ORDERED: GENTAMICIN SO4 80 MG/2 ML VIAL IVPB ONE (16:26)
[2022-10-01] MEDS ORDERED: VANCOMYCIN 1,000 MG VIAL (RESTRICTED TO ID ONLY) IVPB ONE (16:27)
[2022-10-01] MEDS ORDERED: ACETAMINOPHEN INJECTION 100 ML IVPB ONE (16:55)
[2022-10-01] MEDS ORDERED: DOCUSATE SODIUM 100 MG CAPSULE (FP) PO PRN (17:25)
[2022-10-01] MEDS ORDERED: AZTREONAM 1 GM in DEXTROSE 5%-WATER - 50 ML IVPB SCH (18:00)
[2022-10-01] MEDS: HYDROmorphone HCL CARPU-JECT 2 MG/1 ML DISP.SYRIN IVPUSH ONE (18:30)
[2022-10-01] MEDS ORDERED: HYDROmorphone HCl 2 MG/ML VIAL ONE (18:32)
[2022-10-01] MEDS ORDERED: HYDROmorphone HCl 2 MG/ML VIAL IVPUSH ONE (18:41)
[2022-10-01] MEDS: LACTATED RINGERS SOLUTION 1,000 ML IV SCH (19:25)
[2022-10-01] MEDS ORDERED: QUEtiapine FUMARATE 100 MG TABLET (FP) ONE (21:31)
[2022-10-01] MEDS: QUEtiapine FUMARATE 300 MG TABLET PO SCH (21:34)
[2022-10-01] MEDS ORDERED: QUEtiapine FUMARATE 300 MG TABLET PO SCH (22:00)
[2022-10-02] MEDS: LACTATED RINGERS SOLUTION 1,000 ML IV SCH ×3 (00:39→22:44)
[2022-10-02] MEDS: ACETAMINOPHEN 1000 MG/100 ML BAG IVPB SCH ×3 (00:41→11:44)
[2022-10-02] MEDS: QUEtiapine FUMARATE 300 MG TABLET PO SCH ×2 (01:19→22:13)
[2022-10-02] MEDS: oxyCODONE HCL 5 MG TABLET PO PRN ×3 (01:49→19:10)
[2022-10-02] MEDS: AZTREONAM 1 GM in DEXTROSE 5%-WATER - 50 ML IVPB SCH ×3 (01:51→19:11)
[2022-10-02] MEDS ORDERED: AZTREONAM 1 GM in DEXTROSE 5%-WATER - 50 ML IVPB SCH (02:00)
[2022-10-02] MEDS ORDERED: VANCOMYCIN/WATER FOR INJ (PEG) 1,000 MG/200 ML BAG IVPB SCH (03:30)
[2022-10-02] MEDS: CLINDAMYCIN 600MG PREMIX IVPB 600 MG/50 ML BAG IVPB SCH ×4 (04:11→21:43)
[2022-10-02] MEDS: VANCOMYCIN/WATER FOR INJ (PEG) 1,000 MG/200 ML BAG IVPB SCH ×2 (04:50→16:51)
[2022-10-02 09:22] LABS: PH,URINE 6.5 (5.0-8.0); URINE APPEARANCE CLEAR; URINE BILIRUBIN NEGATIVE (NEGATIVE); URINE COLOR YELLOW; URINE GLUCOSE (UA) NEGATIVE (NEGATIVE); URINE KETONE NEGATIVE (NEGATIVE); URINE LEUK ESTERASE NEGATIVE (NEGATIVE); URINE NITRITE NEGATIVE (NEGATIVE); URINE PROTEIN NEGATIVE (NEGATIVE); URINE UROBILINOGEN 0.2 mg/dL (0.2-1.0)
[2022-10-02 09:40] LABS: BASO % 0.1 % (0-2.0); EOS % 0.1 % (0-4.5); HEMATOCRIT 33.9 % (35.4-49); HEMOGLOBIN 11.8 GM/dL (11.7-16.9); LYMPH % 14.3 % (8-40); MCHC 34.7 g/dl (32.0-35.9); MEAN CELL VOLUME 92.4 fl (80-96); MEAN PLT VOLUME 6.3 fl (7.5-11.1); MONO % 6.2 % (3.8-10.2); NEUT % 79.3 % (42.8-82.8); PLATELET COUNT 550 10^3/uL (134-434); RBC 3.67 M/mm3 (4.00-5.60); RDW 12.8 % (11.9-15.9); WHITE BLOOD COUNT 13.2 K/mm3 (4.0-10.0)
[2022-10-02] MEDS: SERTRALINE HCL 50 MG TABLET (FP) PO SCH (09:44)
[2022-10-02] MEDS: POLYETHYLENE GLYCOL (HEALTHYLAX) 3350 17 GM PACKET PO SCH (09:44)
[2022-10-02] MEDS: EMTRICITAB/RILPIVIRI/TENOF ALA (ODEFSEY) TABLET PO SCH (09:46)
[2022-10-02 10:15] LABS: BLOOD UREA NITROGEN 16.4 mg/dL (7-18)
[2022-10-02 10:17] LABS: CREATININE 0.9 mg/dL (0.55-1.3)
[2022-10-02] MEDS: HEPARIN NA (PORCINE) 5,000 UNITS/ML 1ML VIAL SQ SCH ×2 (11:42→21:44)
[2022-10-02] MEDS ORDERED: QUEtiapine FUMARATE 100 MG TABLET (FP) ONE (21:16)
[2022-10-03] MEDS: AZTREONAM 1 GM in DEXTROSE 5%-WATER - 50 ML IVPB SCH ×3 (01:39→17:55)
[2022-10-03] MEDS: oxyCODONE HCL 5 MG TABLET PO PRN ×4 (02:02→19:10)
[2022-10-03] MEDS: CLINDAMYCIN 600MG PREMIX IVPB 600 MG/50 ML BAG IVPB SCH ×2 (03:44→08:17)
[2022-10-03] MEDS: LACTATED RINGERS SOLUTION 1,000 ML IV SCH (08:17)
[2022-10-03 09:19] LABS: HEMATOCRIT 34.3 % (35.4-49); HEMOGLOBIN 11.6 GM/dL (11.7-16.9); MCH 31.5 pg (25.7-33.7); MCHC 33.8 g/dl (32.0-35.9); MEAN CELL VOLUME 93.3 fl (80-96); MEAN PLT VOLUME 6.6 fl (7.5-11.1); PLATELET COUNT 557 10^3/uL (134-434); RBC 3.68 M/mm3 (4.00-5.60); RDW 12.7 % (11.9-15.9); WHITE BLOOD COUNT 7.2 K/mm3 (4.0-10.0)
[2022-10-03 09:54] LABS: CALCIUM 9.1 mg/dL (8.5-10.1)
[2022-10-03 09:58] LABS: CREATININE 0.9 mg/dL (0.55-1.3)
[2022-10-03] MEDS: EMTRICITAB/RILPIVIRI/TENOF ALA (ODEFSEY) TABLET PO SCH (10:04)
[2022-10-03] MEDS: POLYETHYLENE GLYCOL (HEALTHYLAX) 3350 17 GM PACKET PO SCH (10:04)
[2022-10-03] MEDS: SERTRALINE HCL 50 MG TABLET (FP) PO SCH ×2 (10:06→10:15)
[2022-10-03] MEDS: HEPARIN NA (PORCINE) 5,000 UNITS/ML 1ML VIAL SQ SCH ×2 (10:07→21:36)
[2022-10-03] MEDS: VANCOMYCIN/WATER FOR INJ (PEG) 1,000 MG/200 ML BAG IVPB SCH (19:15)
[2022-10-03] MEDS ORDERED: QUEtiapine FUMARATE 100 MG TABLET (FP) ONE (21:06)
[2022-10-03] MEDS: QUEtiapine FUMARATE 300 MG TABLET PO SCH (21:35)
[2022-10-04] MEDS: AZTREONAM 1 GM in DEXTROSE 5%-WATER - 50 ML IVPB SCH ×3 (02:14→17:19)
[2022-10-04] MEDS: oxyCODONE HCL 5 MG TABLET PO PRN ×3 (03:09→21:16)
[2022-10-04] MEDS: VANCOMYCIN/WATER FOR INJ (PEG) 1,000 MG/200 ML BAG IVPB SCH (05:44)
[2022-10-04 10:08] LABS: BASO % 0.3 % (0-2.0); EOS % 0.9 % (0-4.5); HEMATOCRIT 33.7 % (35.4-49); HEMOGLOBIN 11.6 GM/dL (11.7-16.9); LYMPH % 24.7 % (8-40); MCH 32.4 pg (25.7-33.7); MCHC 34.5 g/dl (32.0-35.9); MEAN CELL VOLUME 93.7 fl (80-96); MEAN PLT VOLUME 6.3 fl (7.5-11.1); MONO % 10.4 % (3.8-10.2); NEUT % 63.7 % (42.8-82.8); PLATELET COUNT 505 10^3/uL (134-434); RBC 3.59 M/mm3 (4.00-5.60); WHITE BLOOD COUNT 7.9 K/mm3 (4.0-10.0)
[2022-10-04] MEDS: SERTRALINE HCL 50 MG TABLET (FP) PO SCH (10:20)
[2022-10-04] MEDS: HEPARIN NA (PORCINE) 5,000 UNITS/ML 1ML VIAL SQ SCH ×2 (10:20→21:19)
[2022-10-04] MEDS: POLYETHYLENE GLYCOL (HEALTHYLAX) 3350 17 GM PACKET PO SCH (10:21)
[2022-10-04] MEDS: EMTRICITAB/RILPIVIRI/TENOF ALA (ODEFSEY) TABLET PO SCH (10:33)
[2022-10-04 10:44] LABS: CALCIUM 9.2 mg/dL (8.5-10.1)
[2022-10-04 10:45] LABS: ALBUMIN 2.8 g/dl (3.4-5.0); BLOOD UREA NITROGEN 15.3 mg/dL (7-18)
[2022-10-04 10:48] LABS: CREATININE 0.9 mg/dL (0.55-1.3)
[2022-10-04 10:50] LABS: BILIRUBIN,TOTAL 0.2 mg/dL (0.2-1); TOT PROT 6.5 g/dl (6.4-8.2)
[2022-10-04] MEDS: GABAPENTIN 100 MG CAPSULE PO SCH ×2 (13:13→21:17)
[2022-10-04] MEDS ORDERED: QUEtiapine FUMARATE 100 MG TABLET (FP) ONE (20:54)
[2022-10-04] MEDS: QUEtiapine FUMARATE 300 MG TABLET PO SCH (21:22)
[2022-10-05] MEDS: AZTREONAM 1 GM in DEXTROSE 5%-WATER - 50 ML IVPB SCH ×2 (01:50→10:07)
[2022-10-05] MEDS: GABAPENTIN 100 MG CAPSULE PO SCH ×3 (06:06→21:38)
[2022-10-05] MEDS: POLYETHYLENE GLYCOL (HEALTHYLAX) 3350 17 GM PACKET PO SCH (10:05)
[2022-10-05] MEDS: EMTRICITAB/RILPIVIRI/TENOF ALA (ODEFSEY) TABLET PO SCH (10:06)
[2022-10-05] MEDS: SERTRALINE HCL 50 MG TABLET (FP) PO SCH ×2 (10:07→10:17)
[2022-10-05] MEDS: HEPARIN NA (PORCINE) 5,000 UNITS/ML 1ML VIAL SQ SCH ×2 (10:08→21:38)
[2022-10-05 10:23] LABS: BASO % 0.3 % (0-2.0); EOS % 0.9 % (0-4.5); HEMATOCRIT 36.2 % (35.4-49); HEMOGLOBIN 12.3 GM/dL (11.7-16.9); LYMPH % 28.5 % (8-40); MCH 31.8 pg (25.7-33.7); MEAN CELL VOLUME 93.3 fl (80-96); MEAN PLT VOLUME 6.6 fl (7.5-11.1); MONO % 9.6 % (3.8-10.2); NEUT % 60.7 % (42.8-82.8); PLATELET COUNT 547 10^3/uL (134-434); RBC 3.88 M/mm3 (4.00-5.60); RDW 12.4 % (11.9-15.9); WHITE BLOOD COUNT 6.2 K/mm3 (4.0-10.0)
[2022-10-05 10:50] LABS: BLOOD UREA NITROGEN 13.9 mg/dL (7-18); CALCIUM 9.2 mg/dL (8.5-10.1)
[2022-10-05 10:51] LABS: ALBUMIN 3.1 g/dl (3.4-5.0)
[2022-10-05 10:52] LABS: CREATININE 0.9 mg/dL (0.55-1.3)
[2022-10-05 10:54] LABS: BILIRUBIN,TOTAL 0.3 mg/dL (0.2-1); TOT PROT 7.2 g/dl (6.4-8.2)
[2022-10-05] MEDS: oxyCODONE HCL 5 MG TABLET PO PRN ×3 (13:33→21:38)
[2022-10-05] MEDS: VANCOMYCIN/WATER 1250 MG 1,250 MG/250 ML BAG IVPB SCH (14:59)
[2022-10-05] MEDS ORDERED: ERTAPENEM SODIUM 1 GM in SODIUM CHLORIDE 50 ML IVPB ONE (15:12)
[2022-10-05] MEDS ORDERED: QUEtiapine FUMARATE 100 MG TABLET (FP) ONE (21:36)
[2022-10-05] MEDS: QUEtiapine FUMARATE 300 MG TABLET PO SCH (21:41)
[2022-10-06 01:23] VITALS: RESP 18
[2022-10-06] MEDS: VANCOMYCIN/WATER 1250 MG 1,250 MG/250 ML BAG IVPB SCH (01:45)
[2022-10-06] MEDS: oxyCODONE HCL 5 MG TABLET PO PRN ×5 (01:55→23:07)
[2022-10-06] MEDS: GABAPENTIN 100 MG CAPSULE PO SCH ×3 (06:51→22:12)
[2022-10-06] MEDS: POLYETHYLENE GLYCOL (HEALTHYLAX) 3350 17 GM PACKET PO SCH (09:08)
[2022-10-06] MEDS: EMTRICITAB/RILPIVIRI/TENOF ALA (ODEFSEY) TABLET PO SCH (09:09)
[2022-10-06] MEDS: SERTRALINE HCL 50 MG TABLET (FP) PO SCH (09:12)
[2022-10-06] MEDS: HEPARIN NA (PORCINE) 5,000 UNITS/ML 1ML VIAL SQ SCH ×2 (09:12→22:12)
[2022-10-06] MEDS: ERTAPENEM SODIUM 1 GM in SODIUM CHLORIDE 50 ML IVPB SCH (12:14)
[2022-10-06] MEDS: DAPTOMYCIN 550 MG in SODIUM CHLORIDE 50 ML IVPB SCH (12:46)
[2022-10-06] MEDS ORDERED: QUEtiapine FUMARATE 100 MG TABLET (FP) ONE (22:10)
[2022-10-06] MEDS: QUEtiapine FUMARATE 300 MG TABLET PO SCH (22:13)
[2022-10-07] MEDS: GABAPENTIN 100 MG CAPSULE PO SCH ×3 (06:05→22:25)
[2022-10-07] MEDS: oxyCODONE HCL 5 MG TABLET PO PRN ×4 (06:05→19:18)
[2022-10-07 09:49] LABS: HEMOGLOBIN 12.4 GM/dL (11.7-16.9); MCHC 35.5 g/dl (32.0-35.9); MEAN CELL VOLUME 93.1 fl (80-96); MEAN PLT VOLUME 6.5 fl (7.5-11.1); PLATELET COUNT 455 10^3/uL (134-434); RBC 3.76 M/mm3 (4.00-5.60); RDW 12.9 % (11.9-15.9); WHITE BLOOD COUNT 6.1 K/mm3 (4.0-10.0)
[2022-10-07] MEDS: EMTRICITAB/RILPIVIRI/TENOF ALA (ODEFSEY) TABLET PO SCH (09:55)
[2022-10-07] MEDS: POLYETHYLENE GLYCOL (HEALTHYLAX) 3350 17 GM PACKET PO SCH (09:55)
[2022-10-07] MEDS: HEPARIN NA (PORCINE) 5,000 UNITS/ML 1ML VIAL SQ SCH ×2 (09:55→22:25)
[2022-10-07] MEDS: ERTAPENEM SODIUM 1 GM in SODIUM CHLORIDE 50 ML IVPB SCH (09:56)
[2022-10-07 10:13] LABS: CALCIUM 9.3 mg/dL (8.5-10.1)
[2022-10-07 10:17] LABS: CREATININE 0.9 mg/dL (0.55-1.3)
[2022-10-07] MEDS: DAPTOMYCIN 550 MG in SODIUM CHLORIDE 50 ML IVPB SCH (10:23)
[2022-10-07] MEDS ORDERED: QUEtiapine FUMARATE 100 MG TABLET (FP) ONE (21:27)
[2022-10-07] MEDS: SERTRALINE HCL 50 MG TABLET (FP) PO SCH ×2 (22:26→22:33)
[2022-10-07] MEDS: QUEtiapine FUMARATE 300 MG TABLET PO SCH ×2 (22:26→22:33)
[2022-10-08] MEDS: oxyCODONE HCL 5 MG TABLET PO PRN ×4 (02:20→06:34)
[2022-10-08] MEDS: GABAPENTIN 100 MG CAPSULE PO SCH (06:31)
[2022-10-08] MEDS: EMTRICITAB/RILPIVIRI/TENOF ALA (ODEFSEY) TABLET PO SCH (09:43)
[2022-10-08] MEDS: HEPARIN NA (PORCINE) 5,000 UNITS/ML 1ML VIAL SQ SCH (09:45)
[2022-10-08] MEDS: POLYETHYLENE GLYCOL (HEALTHYLAX) 3350 17 GM PACKET PO SCH (09:48)
[2022-10-08] MEDS: ERTAPENEM SODIUM 1 GM in SODIUM CHLORIDE 50 ML IVPB SCH (09:48)
[2022-10-08 10:03] LABS: BASO % 0.3 % (0-2.0); EOS % 1.7 % (0-4.5); HEMATOCRIT 37.8 % (35.4-49); HEMOGLOBIN 12.8 GM/dL (11.7-16.9); LYMPH % 38.9 % (8-40); MCH 31.7 pg (25.7-33.7); MCHC 33.8 g/dl (32.0-35.9); MEAN CELL VOLUME 93.7 fl (80-96); MONO % 13.7 % (3.8-10.2); NEUT % 45.4 % (42.8-82.8); PLATELET COUNT 482 10^3/uL (134-434); RBC 4.03 M/mm3 (4.00-5.60); RDW 13.1 % (11.9-15.9); WHITE BLOOD COUNT 6.6 K/mm3 (4.0-10.0)
[2022-10-08 10:32] LABS: BLOOD UREA NITROGEN 16.4 mg/dL (7-18); CALCIUM 9.7 mg/dL (8.5-10.1)
[2022-10-08] MEDS ORDERED: ACETAMINOPHEN 325 MG TABLET (FP) PO PRN (11:37)
[2022-10-08] MEDS: DAPTOMYCIN 550 MG in SODIUM CHLORIDE 50 ML IVPB SCH (11:39)
[2022-10-08] MEDS ORDERED: ACETAMINOPHEN/CAFFEINE/BUTALBITAL 1 TAB PO ONE (12:54)
[2022-10-08 15:19] VITALS: BP 109/63; PULSE 75; TEMP 98.7
== END 2022-10-08 15:00 | disposition home or self-care (01) | DRG 857 ==
LOC: JER 20:43 → JERBED 21:34 → J6S 10-01 01:46
PROVIDERS: ADMIT Internal Medicine; ATTEND Internal Medicine
PROC: 0J970ZZ Drainage of Back Subcutaneous Tissue and Fascia, Open Approach (ICD-10-PCS; 2022-10-01)
PROC: 4A1004G Monitoring of Central Nervous Electrical Activity, Intraoperative, Open Approach (ICD-10-PCS; 2022-10-01)
PROC: 0JB70ZZ Excision of Back Subcutaneous Tissue and Fascia, Open Approach (ICD-10-PCS; principal; 2022-10-01 14:10)
PROC: 00U20KZ Supplement Dura Mater with Nonautologous Tissue Substitute, Open Approach (ICD-10-PCS; 2022-10-01 14:10)
PROC: 06HY33Z Insertion of Infusion Device into Lower Vein, Percutaneous Approach (ICD-10-PCS; 2022-10-06)
DX: T81.42XA Infection following a procedure, deep incisional surgical site, initial encounter (principal); B20 Human immunodeficiency virus [HIV] disease; M54.50 Low back pain, unspecified; Y83.9 Surgical procedure, unspecified as the cause of abnormal reaction of the patient, or of later complication, without mention of misadventure at the time of the procedure; F41.8 Other specified anxiety disorders; D75.839 Thrombocytosis, unspecified; R51.9 Headache, unspecified
CPT/HCPCS: 36415; 36569; 70450-TC; 72131-TC; 72132-TC; 77001-TC-FY; 80048; 80053; 81003; 83735; 84100; 85025; 85027; 85610; 85651; 85730; 86140; 86850; 86900; 86901; 87040; 87070; 87205; 94760; 97116-GP; 97162-GP; 99285-25; C1751; C9803-CS; G0480; J0878; J1644; Q9967; U0003; U0005